=== PATIENT | female | born 1935 ===

== ENCOUNTER 2018-07-14 00:51 | Emergency (ER) | payer OTHER ==
[2018-07-14 01:39] VITALS: BMI 26.1
[2018-07-14 01:42] VITALS: RESP 18
[2018-07-14] MEDS ORDERED: Sodium Chloride 0.9% 1,000 ML IV STA (03:32)
[2018-07-14 04:10] LABS: VENOUS BLOOD GAS BASE EXCESS -1.1 mmol/L (0.0-2.0); VENOUS BLOOD GAS PCO2 45 mmHg (40-60); VENOUS BLOOD GAS PO2 37 mm/Hg (30-55); VENOUS BLOOD PH 7.35 (7.32-7.43)
[2018-07-14 04:47] LABS: SQUAMOUS EPITHIAL 2 /hpf (0-5); URINE BACTERIA MANY (<OCC); URINE BILIRUBIN NEGATIVE (NEGATIVE); URINE BLOOD SMALL (NEGATIVE); URINE CLARITY CLOUDY (Clear); URINE COLOR YELLOW (YELLOW); URINE GLUCOSE (UA) NEG (NEGATIVE); URINE LEUKOCYTE ESTERASE LARGE Leu/uL (Negative); URINE PROTEIN NEGATIVE (NEGATIVE); URINE UROBILINOGEN 0.2-1.0 mg/dL (0.2-1.0)
[2018-07-14 04:49] LABS: BASO # 0.1 K/uL (0.0-0.2); BASO % 0.7 % (0.0-2.0); EOS # 0.5 K/uL (0.0-0.7); EOS % 6.6 % (0.0-4.0); HEMOGLOBIN 10.5 g/dL (12.0-16.0); LYMPH # 2.1 K/uL (1.0-4.3); LYMPH % 26.3 % (20.0-40.0); MEAN CORPUSCULAR HEMOGLOBIN 29.9 pg (27.0-31.0); MEAN CORPUSCULAR HGB CONC 32.8 g/dL (33.0-37.0); MEAN PLATELET VOLUME 8.4 fl (7.2-11.7); MONO # 0.5 K/uL (0.0-0.8); MONO % 6.6 % (0.0-10.0); NEUT # 4.8 K/uL (1.8-7.0); NEUT % 59.8 % (50.0-75.0); RBC 3.51 Mil/uL (3.80-5.20); RED CELL DISTRIBUTION WIDTH 15.4 % (11.5-14.5); WHITE BLOOD COUNT 8.1 K/uL (4.8-10.8)
--- NOTE | 2018-07-14 04:54 | ED PDOC ---
Hyperglycemia/Hypoglycemia Time Seen by Provider: 07/14/18 01:48 Chief Complaint (Nursing): High Blood Sugar Chief Complaint (Provider): High Blood Sugar History Per: Patient, Family History/Exam Limitations: no limitations Associated Infectious Symptoms: Other (Decreased appetite) : The patient does not have any of the infectious symptoms listed except for those marked. Additional Complaint(s): 83 years old female with history of diabetes and takes insulin brought to ER by family for evaluation of hyperglycemia above 300 at home but without any other symptoms. Family reports patient has not been eating and drinking well and concerned she is dehydrated. Patient denies polyuria, polydipsia chest pain and shortness of breath. PMD: Rafa Corey Past Medical History Reviewed: Historical Data, Nursing Documentation, Vital Signs Vital Signs: Last Vital Signs Temp 98.4 F 07/14/18 01:39 Pulse 65 07/14/18 01:39 Resp 18 07/14/18 01:39 BP 131/70 07/14/18 01:39 Pulse Ox 100 07/14/18 01:39 Primary Care Provider: Non [facility] Provider, - Medical History PMH: Diabetes - Surgical History Surgical History: No Surg Hx - Family History Family History: States: Unknown Family Hx - Home Medications Home Medications: Ambulatory Orders Medication Instructions Recorded Nitrofurantoin Macrocrystals 100 mg PO BID 5 Days cap 07/14/18 [Macrobid] - Allergies Allergies/Adverse Reactions: Allergies Allergy/AdvReac Type Severity Reaction Status Date / Time ibuprofen [From Advil] Allergy RASH Verified 07/14/18 01:39 Review of Systems ROS Statement: Except As Marked, All Systems Reviewed And Found Negative Constitutional: Positive for: Other (Hyperglycemia. Decreased appetite. No polydipsia or polyuria) Cardiovascular: Negative for: Chest Pain Respiratory: Negative for: Shortness of Breath Physical Exam - Reviewed Nursing Documentation Reviewed: Yes Vital Signs Reviewed: Yes - Physical Exam Appears: Positive for: Well, No Acute Distress Head Exam: Positive for: ATRAUMATIC, NORMOCEPHALIC Skin: Positive for: Normal Color, Warm, Dry Eye Exam: Positive for: Normal appearance, EOMI, PERRL ENT: Positive for: Normal ENT Inspection Neck: Positive for: Normal, Painless ROM, Supple Cardiovascular/Chest: Positive for: Regular Rate, Rhythm. Negative for: Murmur Respiratory: Positive for: Normal Breath Sounds. Negative for: Wheezing Gastrointestinal/Abdominal: Positive for: Normal Exam, Soft. Negative for: Tenderness Back: Positive for: Normal Inspection. Negative for: L CVA Tenderness, R CVA Tenderness Extremity: Positive for: Normal ROM. Negative for: Pedal Edema, Swelling Neurological/Psych: Positive for: Awake, Alert, Oriented (x3) - Laboratory Results Result Diagrams: 07/14/18 04:32 07/14/18 04:32 Lab Results: pO2 37 mm/Hg (30-55) 07/14/18 04:07 VBG pH 7.35 (7.32-7.43) 07/14/18 04:07 VBG pCO2 45 mmHg (40-60) 07/14/18 04:07 VBG HCO3 23.2 mmol/L 07/14/18 04:07 VBG Total CO2 26.2 mmol/L (22-28) 07/14/18 04:07 VBG O2 Sat (Calc) 68.8 % (40-65) H 07/14/18 04:07 VBG Base Excess -1.1 mmol/L (0.0-2.0) L 07/14/18 04:07 VBG Potassium 4.7 mmol/L (3.6-5.2) 07/14/18 04:07 Sodium 130.0 mmol/L (132-148) L 07/14/18 04:07 Chloride 99.0 mmol/L (98-107) 07/14/18 04:07 Glucose 231 mg/dL (65-105) H 07/14/18 04:07 Lactate 0.9 mmol/L (0.7-2.1) 07/14/18 04:07 FiO2 21.0 % 07/14/18 04:07 - ECG O2 Sat by Pulse Oximetry: 100 (RA) Pulse Ox Interpretation: Normal Medical Decision Making Medical Decision Making: Time: 0332 A/P: Asymptomatic hyperglycemia --Will rule out DKA --Very well appearing, will hydrate patient 0600 --No DKA based on bloodwork --After fluids, hyperglycemia resolving --Patient remains well appearing, stable for outpatient followup --Advised antibiotics for UTI and following up with PMD in 2 - 3 days for followup Scribe Attestation: Documented by Yoly Hedrick, acting as a scribe for Danyel Choi MD. Provider Scribe Attestation: All medical record entries made by the Scribe were at my direction and personally dictated by me. I have reviewed the chart and agree that the record accurately reflects my personal performance of the history, physical exam, medical decision making, and the department course for this patient. I have also personally directed, reviewed, and agree with the discharge instructions and disposition. Disposition - Clinical Impression Clinical Impression: Hyperglycemia, UTI (urinary tract infection) - Disposition Referrals: Rafa Garza MD [Primary Care Provider] - Disposition: Routine/Home Disposition Time: 06:00 Condition: IMPROVED Prescriptions: Nitrofurantoin Macrocrystals [Macrobid] 100 mg PO BID 5 Days cap Instructions: Urinary Tract Infections in Adults, Hyperglycemia, Adult Forms: [facility] (Latvian) Print Language: SETSWANA
[2018-07-14 04:55] LABS: CALCIUM 8.8 mg/dL (8.4-10.2)
[2018-07-14 06:37] VITALS: BP 124/53; PULSE 66; TEMP 97.8
[2018-07-15 04:34] VITALS: O2SAT 100
== END 2018-07-14 05:56 | disposition home or self-care (01) ==
LOC: H.ER 00:51
DX: N39.0 Urinary tract infection, site not specified (principal); E11.65 Type 2 diabetes mellitus with hyperglycemia; Z88.6 Allergy status to analgesic agent
CPT/HCPCS: 80048; 81003; 82803; 82948; 85025; 99283; J7030